=== PATIENT | female | born 1990 | race Asian ===

== ENCOUNTER 2024-07-25 09:12 | Emergency (ER) | payer OTHER ==
[~2024-07-25] VITALS: Ht 160 cm; Wt 87.7 kg
[2024-07-25 09:20] VITALS: BP 113/73; PULSE 85; RESP 18; TEMP 98.1; O2SAT 97
[2024-07-25 09:55] LABS: BASOPHILS % (AUTO) 0.2 % (0.0-2.0); EOSINOPHILS % (AUTO) 0.7 % (1.0-6.0); HEMATOCRIT 37.9 % (36-46); HEMOGLOBIN 12.8 g/dL (12.0-16.0); LYMPHOCYTES # (AUTO) 1.7 K/uL (1.0-4.8); LYMPHOCYTES % (AUTO) 12.2 % (22.0-44.0); MEAN CORPUSCULAR HGB CONC 33.7 G/dL (31.0-37.0); MEAN CORPUSCULAR VOLUME 89 fL (80-100); MONOCYTES # (AUTO) 0.9 K/uL (0.1-1.0); MONOCYTES % (AUTO) 6.7 % (2.0-9.0); NEUTROPHILS # (AUTO) 11.1 K/uL (1.8-7.7); NEUTROPHILS % (AUTO) 80.2 % (40.0-70.0); PLATELET COUNT (AUTO) 294 K/uL (150-450); RED BLOOD CELL COUNT(AUTO) 4.26 MIL/uL (4.00-5.20); RED CELL DISTRIBUTION WIDTH 13.2 % (11.5-14.5); WHITE BLOOD COUNT (AUTO) 13.9 K/uL (4.5-11.0)
[2024-07-25 09:56] LABS: GLUCOMETER DEV NAME(LOC) ER.7; GLUCOSE,POINT OF CARE 82 MG/DL (70-110)
[2024-07-25 10:02] LABS: ANION GAP 9 mmol/L (8-16); CALCIUM, TOTAL 9.1 mg/dL (8.8-10.5); CARBON DIOXIDE 26 mmol/L (22-29); CHLORIDE 104 mmol/L (98-107); CREATININE 0.51 mg/dL (0.60-1.30); GLOMERULAR FILTR. RATE CALC > 60 mL/min (>60); GLUCOSE,RANDOM 86 mg/dL (70-110); POTASSIUM 4.6 mmol/L (3.5-5.1); SODIUM SERUM 139 mmol/L (136-145); UREA NITROGEN, BLOOD 8 mg/dL (7-18)
[2024-07-25] MEDS: ACETAMINOPHEN 500 MG TABLET PO ONE (10:03)
[2024-07-25] MEDS ORDERED: OMEP-148 PO (10:14)
[2024-07-25] MEDS ORDERED: ACET-66 PO (10:14)
== END 2024-07-25 10:25 | disposition home or self-care (01) ==
LOC: EMS 09:15
DX: O99.412 Diseases of the circulatory system complicating pregnancy, second trimester (principal); R07.2 Precordial pain; O21.9 Vomiting of pregnancy, unspecified; R42 Dizziness and giddiness; R51.9 Headache, unspecified; Z3A.16 16 weeks gestation of pregnancy
CPT/HCPCS: 80048; 82962; 85025; 93005; 99284